=== PATIENT | male | born 1955 | race African-American/Black ===

== ENCOUNTER 2019-08-09 12:43 | Inpatient (IN) | payer MEDICARE, BC ==
[2019-08-09] VITALS (19 sets, daily range): BP systolic 114–141; BP diastolic 71–100
[~2019-08-09] VITALS: Ht 177.8 cm; Wt 113.4 kg
--- NOTE | 2019-08-09 08:00 | NUR ---
NURSE NOTES: Received admission orders from Dr. Estevez. Informed about the high ammonia level and unable to verify home medications at this time. Discontinue all home medications at this time until medications are verified with Legal guardian, No labs, No IVF, No procedures at this time, DVT prophylaxis SCDs after venous duplex scan, tylenol 650mg Q 4hrs PRN for mild pain/temperature above 100.5, 1:1 sit[address] only under Dr. Estevez (for further orders consult Dr. Piedra), Full code, start with pureed diet until ST evaluation. Will carry out the order as given and continue to monitor the patient. Addendum: 08/09/19 at 2225 by Rigoberto Dennison RN wrong time. 1999 pm. will rewrite the nursing noted.
--- NOTE | 2019-08-09 13:00 | NUR ---
ED Nurse Note: Patient walked in accompanied by legal guardian c/o bilateral leg edema x 2 weeks. VSS, on RA noted with episodes of confusion. Placed on bed and gown; hooked to tractor crane engineer.
[2019-08-09] MEDS ORDERED: LORazepam Inj 2mg/ml 1ml IV ONE ×2 (13:30→15:00)
--- NOTE | 2019-08-09 13:33 | Emergency Room Report ---
History of Present Illness General Chief Complaint: Edema Source: Patient, Friend Present Illness HPI Patient is a 63-year-old male presents after increased confusion. Gradual onset of symptoms. He was also noted to have bilateral lower extremity swelling. Denies prior medical history. History is markedly limited by patient 's poor cooperation. He denies drinking alcohol. Reports having no prior medical history.He had previously been on benzodiazepines but had recently discontinued that Allergies: Coded Allergies: No Known Allergies (Unverified , 08/09/19) Patient History Past Medical History: see triage record Reviewed Nursing Documentation: PMH: Agreed; PSxH: Agreed Nursing Documentation-PMH Hx Cardiac Problems: No - high cholesterol Hx Diabetes: Yes History Of Psychiatric Problem: Yes - Dementia Review of Systems All Other Systems: negative except mentioned in HPI Physical Exam Vital Signs Date Time Temp Pulse Resp B/P (MAP) Pulse Ox O2 Delivery O2 Flow Rate FiO2 08/09/19 12:58 98.1 56 18 131/71 (91) 98 Room Air Sp02 EP Interpretation: reviewed, normal General Appearance: normal inspection, alert, Chronically Ill Head: atraumatic ENT: normal ENT inspection, hearing grossly normal, normal voice Neck: normal inspection, full range of motion, supple, no bony tend Respiratory: normal inspection, lungs clear, normal breath sounds, no respiratory distress, no retraction, no wheezing Cardiovascular #1: regular rate, rhythm, no edema Gastrointestinal: normal inspection, normal bowel sounds, non tender, soft, no guarding, no hernia Genitourinary: no CVA tenderness Musculoskeletal: normal inspection, back normal, normal range of motion Neurologic: alert, motor strength/tone normal, house mover supervisor III-XII nml as tested, responsive Psychiatric: mood/affect normal Medical Decision Making Restraint Attestation I, Rashid Zuniga MD, have personally evaluated this patient. Laboratory tests have been reviewed and addressed accordingly. The patient is deemed to present a danger to themselves and/or others. This is based on the exam, history ( provided by patient, EMS/[facility] and/or family) and observed or reported behavior. Attempts for non-invasive measures have been considered and/or attempted, however, have been futile. It is in the best interest of the nursing staff, the patient, and others involved in this patient's care that behavioral restraints be applied. Patient evaluation reveals the following: Markedly agitated patient who was threatening staff. Diagnostic Impression: Primary Impression: Encephalopathy ER Course Patient presented for increased confusion and lower extremity swelling. Differential diagnosis include was not limited to uremia, hepatic encephalopathy , alcohol intoxication, benzodiazepine withdrawal among others. Because of complexity of patient's case laboratory tests and imaging studies were ordered.Patient's laboratory testing was unremarkable. CT the head read by radiology showed no evidence of acute intracranial hemorrhage or acute CVA. Patient was given medications due to agitation after threatening staff patient was placed in restraints. Dr. Kushal May was contacted for inpatient management Labs Test 08/09/19 13:55 White Blood Count 8.1 K/UL (4.8-10.8) Red Blood Count 5.16 M/UL (4.70-6.10) Hemoglobin 13.8 G/DL (14.2-18.0) Hematocrit 42.9 % (42.0-52.0) Mean Corpuscular Volume 83 FL (80-99) Mean Corpuscular Hemoglobin 26.8 PG (27.0-31.0) Mean Corpuscular Hemoglobin Concent 32.2 G/DL (32.0-36.0) Red Cell Distribution Width 12.8 % (11.6-14.8) Platelet Count 213 K/UL (150-450) Mean Platelet Volume 8.2 FL (6.5-10.1) Neutrophils (%) (Auto) 63.0 % (45.0-75.0) Lymphocytes (%) (Auto) 26.4 % (20.0-45.0) Monocytes (%) (Auto) 8.6 % (1.0-10.0) Eosinophils (%) (Auto) 1.1 % (0.0-3.0) Basophils (%) (Auto) 0.8 % (0.0-2.0) Last Vital Signs Date Time Temp Pulse Resp B/P (MAP) Pulse Ox O2 Delivery O2 Flow Rate FiO2 08/09/19 12:58 98.1 56 18 131/71 (91) 98 Room Air Status: improved Disposition: ADMITTED INPATIENT Condition: Stable Rashid Zuniga MD Aug 09, 2019 13:33
--- NOTE | 2019-08-09 14:14 | NUR ---
ED Nurse Note: Called CT.
[2019-08-09 14:31] LABS: BASOPHILS % (AUTO) 0.8 % (0.0-2.0); EOSINOPHILS % (AUTO) 1.1 % (0.0-3.0); HEMATOCRIT 42.9 % (42.0-52.0); HEMOGLOBIN 13.8 G/DL (14.2-18.0); LYMPHOCYTES % (AUTO) 26.4 % (20.0-45.0); MEAN CORPUSCULAR VOLUME 83 FL (80-99); MONOCYTES % (AUTO) 8.6 % (1.0-10.0); PLATELET COUNT 213 K/UL (150-450); RED BLOOD COUNT 5.16 M/UL (4.70-6.10); RED CELL DISTRIBUTION WIDTH 12.8 % (11.6-14.8); WHITE BLOOD COUNT 8.1 K/UL (4.8-10.8)
[2019-08-09 14:50] LABS: ANION GAP 9 mmol/L (5-15); BLOOD UREA NITROGEN 13 mg/dL (7-18); CALCIUM 9.4 MG/DL (8.5-10.1); CARBON DIOXIDE 27 MMOL/L (21-32); CHLORIDE 108 MMOL/L (98-107); CREATININE 1.2 MG/DL (0.55-1.30); POTASSIUM 3.8 MMOL/L (3.5-5.1); SODIUM 144 MMOL/L (136-145)
[2019-08-09 14:58] LABS: ALANINE AMINOTRANSFERASE 15 U/L (12-78); ALBUMIN 3.7 G/DL (3.4-5.0); ALBUMIN/GLOBULIN RATIO 0.8 (1.0-2.7); ALKALINE PHOSPHATASE 59 U/L (46-116); ASPARTATE AMINO TRANSFERASE 17 U/L (15-37); BILIRUBIN,TOTAL 0.7 MG/DL (0.2-1.0)
[2019-08-09] MEDS ORDERED: DiphenhydrAMINE 50mg/ml Inj IVP ONE (15:00)
[2019-08-09] MEDS ORDERED: Haloperidol 5mg/ml Inj IM ONE (15:00)
--- NOTE | 2019-08-09 15:00 | NUR ---
ED Nurse Note: Pt noted to be anxious and restrictive to care.
--- NOTE | 2019-08-09 15:15 | Diagnostic Imaging Report ---
EXAM: CT Head Without Intravenous Contrast CLINICAL HISTORY: AMS TECHNIQUE: Axial computed tomography images of the head/brain without intravenous contrast. CTDI is 60 mGy and DLP is 1274.1 mGy-cm. One or more of the following dose reduction techniques were used: automated exposure control, adjustment of the mA and/or kV according to patient size, use of iterative reconstruction technique. COMPARISON: None FINDINGS: Brain: No acute infarct or hemorrhage identified. No extra-axial fluid collection. No mass effect or midline shift. Ventricles and sulci: Mild prominence of the ventricles and sulci is likely secondary to cerebral volume loss. Bones: Normal. No bony lesion or fracture. Subcutaneous tissues: Normal. Sinuses: Normal. No air-fluid levels or mucosal thickening. Mastoid air cells: Normal. Orbits: Grossly unremarkable. Other: Atherosclerotic calcifications in the intracranial vasculature. Cerumen in the external auditory canals. IMPRESSION: No acute intracranial abnormality.
--- NOTE | 2019-08-09 18:04 | NUR ---
NURSE NOTES: Received telephone report from BRIGIDO Brown in the ER. Awaiting patient's arrival.
--- NOTE | 2019-08-09 18:50 | NUR ---
Note perico in ED - 08/09/19 at 1943 by BC TRANSFER TO FLOOR: Patient transferred to 4E as ordered, per Inderjit. Report given to [place] FOFANA. Belongings and medications given to receiving nurse. Family and or S/O informed of transfer.
--- NOTE | 2019-08-09 18:50 | NUR ---
TRANSFER TO FLOOR: Patient transferred to 4E as ordered, per Dr Estevez . Report given to [place] FOFANA. Belongings and medications given to receiving nurse. Family and or S/O informed of transfer.
--- NOTE | 2019-08-09 19:13 | NUR ---
NURSE NOTES: Patient arrived to the unit.
--- NOTE | 2019-08-09 19:20 | NUR ---
HAND-OFF: Report given to BRIGIDO Franklin.
--- NOTE | 2019-08-09 19:20 | NUR ---
NURSE NOTES: Received report from BRIGIDO Zimmerman. Patient confused, combative, and unable to reorientate. Breathing unlabored on room air without distress. No s/s of pain noted at this time. Belonging confirmed with transferring nurse. IV access on left forearm noted, wrapped in kerlix. Bed placed at the lowest with alarm, brake, and siderails up for safety. Attempted to orientate to the unit. Call light placed within reach. Room located close to nursing station. Will continue to monitor and provide care as ordered.
--- NOTE | 2019-08-09 19:26 | NUR ---
NURSE NOTES: Placed bilateral soft wrist restraint and reached Dr. Estevez for admission orders due to patient being confused, high risk for fall, and attempted to remove medical devices. Pulses present on bilateral wrists, skin intact, and warm to touch. Will continue to monitor.
--- NOTE | 2019-08-09 20:00 | NUR ---
NURSE NOTES: Received admission orders from Dr. Estevez. Informed about the high ammonia level and unable to verify home medications at this time. Discontinue all home medications at this time until medications are verified with Legal guardian, No labs, No IVF, No procedures at this time, DVT prophylaxis SCDs after venous duplex scan, tylenol 650mg Q 4hrs PRN for mild pain/temperature above 100.5, 1:1 sitter only under Dr. Estevez (for further orders consult Dr. Piedra), Full code, start with pureed diet until ST evaluation. Will carry out the order as given and continue to monitor the patient.
--- NOTE | 2019-08-09 20:11 | NUR ---
NURSE NOTES: Reached Dr. Piedra. Informed about patient's confusion, combativeness, removing medical devices, and high risk for fall. Received an order to place patient on soft bilateral wrist restraints for patient safety, Remeron 15mg PO QHS, Seroquel 25 mg PO QID, raise the HOB above 30 degrees. Will carry out the order as given and continue to monitor the patient.
[2019-08-10] VITALS: BP 122/73
[2019-08-10 04:00] VITALS: BP 156/89
--- NOTE | 2019-08-10 04:00 | NUR ---
NURSE NOTES: Patient uncooperative and combative towards care. Provided incontinence care with assist of three staff. Will continue to monitor.
--- NOTE | 2019-08-10 07:10 | NUR ---
nurse notes received patient in bed, confused no sign of distress, on bilateral wrist restraint on , HL patent, on fall precaution maintained, both side rails up for safety, call light w/n reach jil saba
--- NOTE | 2019-08-10 07:15 | NUR ---
HAND-OFF: Report given to BRIGIDO Rivera. Plan of care endorsed.
--- NOTE | 2019-08-10 07:30 | NUR ---
NURSE NOTES: Patient uncooperative and combative towards care. Provided incontinence care with assist of three staff. Will continue to monitor. Addendum: 08/10/19 at 0900 by PEDRO GILLESPIE RN RN wrong notes
[2019-08-10 08:00] VITALS: BP 138/75
[2019-08-10] MEDS ORDERED: ARICEPT23 MG ORAL (10:29)
[2019-08-10] MEDS ORDERED: LIPITOR80 MG ORAL (10:31)
[2019-08-10] MEDS ORDERED: LORAZEPAM0.5 GM MC (10:32)
[2019-08-10 11:56] VITALS: BP 152/79
[2019-08-10 14:01] LABS: APPEARANCE,URINE CLEAR; BILIRUBIN, URINE NEGATIVE (NEGATIVE); COLOR,URINE PALE YELLOW; GLUCOSE, URINE (UA) NEGATIVE (NEGATIVE); KETONES,URINE NEGATIVE (NEGATIVE); LEUKOCYTE ESTERASE ,URINE NEGATIVE (NEGATIVE); NITRITE,URINE NEGATIVE (NEGATIVE); PH,URINE 8 (4.5-8.0); PROTEIN,URINE NEGATIVE (NEGATIVE); UROBILINOGEN,URINE NORMAL MG/DL (0.0-1.0)
[2019-08-10 16:11] VITALS: BP 150/85
--- NOTE | 2019-08-10 19:05 | NUR ---
HAND-OFF: Report given to Ms. Dennison accordingly patient resting comfortably in bed, needs met and anticipated jayant ley
--- NOTE | 2019-08-10 19:15 | NUR ---
NURSE NOTES: Received report from BRIGIDO Rivera. Patient asleep. Breathing unlabored on room air without distress. No s/s of pain or discomfort noted at this time. Bed placed at the lowest with HOB elevated 30 degrees and alarm, brake, and siderails up for safety. IV noted on left forearm intact. Patient on bilateral soft wrist restraint for patient safety. Bilateral pulses present, skin intact, active range of motion achieved within the restraint, and warm to touch. Call light placed within reach. Will continue to monitor and provide care as ordered.
--- NOTE | 2019-08-10 19:15 | Consultation ---
DATE OF CONSULTATION: 08/09/2019 INFECTIOUS DISEASES CONSULTATION CONSULTING PHYSICIAN: Bert Maloney M.D. PRIMARY ATTENDING PHYSICIAN: Kushal Estevez M.D. REASON FOR CONSULT: Encephalopathy. HISTORY OF PRESENT ILLNESS: This is a 63-year-old male admitted yesterday with confusion and altered mental status. The patient currently is on restraints and is drowsy. PAST MEDICAL HISTORY: According to the ER document, high cholesterol, diabetes, and dementia. MEDICATION: Getting Remeron, Seroquel, Tylenol. Got a dose of lorazepam, diphenhydramine, and haloperidol yesterday. No history is obtainable by the patient ALLERGIES: No known drug allergies. PHYSICAL EXAMINATION: VITAL SIGNS: Temperature is 98.6, pulse 73, and blood pressure 152/79. GENERAL APPEARANCE: No acute distress. Seems to be obese. HEAD AND NECK: [place] conjunctiva. HEART: Normal rate. LUNGS: Clear. ABDOMEN: Soft and nontender. EXTREMITY: Has no edema. LABORATORY AND DIAGNOSTIC DATA: WBC 8.1, hemoglobin 13.8, hematocrit 42.9, and platelets is 213,000. Sodium 144, potassium 3.8, chloride 108, bicarbonate 27, BUN 13, creatinine 1.2, and glucose is 100. Ammonia is elevated at 41. Albumin 3.7. UA is negative. Urine toxicology was also negative. Serum alcohol was low. CT scan of the head showed no acute intracranial abnormality. IMPRESSION: The patient is encephalopathy, causes unknown. Dementia and diabetes per history. RECOMMENDATION: We will obtain chest x-ray. We will follow up without antibiotic. We will try to get more information regarding past medical history. At the end of my exam, I thank Dr. Estevez for involving me in the care of this patient. Bert Maloney M.D. DR: JANET JOB#: [id number] CC: EDI
[2019-08-10 20:00] VITALS: BP 149/93
[2019-08-11] VITALS: BP 146/93
--- NOTE | 2019-08-11 00:15 | History and Physical Report ---
DATE OF ADMISSION: 08/09/2019 HISTORY OF PRESENT ILLNESS: The patient admitted for confusion, altered mental status, encephalopathy. Has history of dementia with psych diagnosis as well. Comes in because of more confusion than baseline. CT did not show apparently any acute findings. The patient also was agitated. He is admitted for AMS, encephalopathy. Cannot get any reliable history from the patient. PAST MEDICAL HISTORY: Hyperlipidemia, dementia, anxiety. PAST SURGICAL HISTORY: Unable to obtain. ALLERGIES: Unable to obtain. MEDICATIONS: Apparently, the patient takes Lipitor and Aricept. FAMILY HISTORY: Noncontributory. SOCIAL HISTORY: Apparently has no history of smoking, alcohol, or illicit drugs. REVIEW OF SYSTEMS: Unable to obtain, very poor historian. PHYSICAL EXAMINATION: VITAL SIGNS: Temperature is 98.8, pulse 71, blood pressure 156/89. HEENT: PERRLA. NECK: Supple. No lymphadenopathy. CHEST: Clear to auscultation. CARDIOVASCULAR: Regular rate and rhythm. No murmurs or extra sounds. GASTROINTESTINAL: Soft, nontender, nondistended. No organomegaly. EXTREMITIES: No edema. Moves all four extremities. NEUROLOGIC: Does not follow neurological exam. Not oriented to name. Reflexes equal in both sides. LABORATORY DATA: WBC of 8.1, hemoglobin 13.8, platelets of 213. Sodium 144, potassium 3.8, BUN of 13, creatinine 1.2, glucose of 100. ASSESSMENT AND PLAN: Encephalopathy, altered mental status, confusion. No acute finding on the CT. The patient has psychiatric history as well. We need to find out the etiology for altered mental status, encephalopathy. I have basically consulted Dr. Bert Maloney as well as Dr. Piedra to rule out any infectious etiology as well as to manage his psychiatric behavior issues. Kushal Estevez M.D. DR: ANTWAN JOB#: [id number] CC:
[2019-08-11 04:00] VITALS: BP 147/79
--- NOTE | 2019-08-11 06:54 | NUR ---
NURSE NOTES: Patient vomited x 1 around 0540 after taking cranberry juice around 0500. Informed Dr. Estevez regarding the condition. VS reading 153/83 HR 68 O2Sat 96% RR 16. Patient currently asleep. Patient has been tolerating water, regular pureed diet, and juices without complication. Will continue to monitor the patient and wait for Dr. Estevez for any new orders follow up.
--- NOTE | 2019-08-11 07:01 | NUR ---
NURSE NOTES: Dr. Estevez ordered ST evaluation and video swallow study. Also, to notify Dr. Rowland about patient vomiting this morning. Will carry out the order as given.
--- NOTE | 2019-08-11 07:20 | NUR ---
NURSE NOTES: Handoff received from Minsu, RN. Patient received awake and confused oriented to person only. Patient is on bilateral wrist restraints. Patient has condom cath on and connected to the bed, bed in the low and locked position with call light within reach, No acute signs of distress noted. Patient has IV site left forearm clean dry and intact, will continue to monitor patient.
--- NOTE | 2019-08-11 07:39 | NUR ---
NURSE NOTES: Informed Dr. Rowland about patient vomiting this morning. Will endorse to dayshift RN to follow up.
--- NOTE | 2019-08-11 07:48 | NUR ---
HAND-OFF: Report given to BRIGIDO Rooney. Plan of care endorsed. Informed dayshift about patient vomiting in the morning. Also, informed dayshift that Dr. Estevez and Dr. Rowland was notified.
--- NOTE | 2019-08-11 08:16 | General Progress Note ---
Assessment/Plan Assessment/Plan: GI CONSULT Dictated KUB ordered Thank you Hyun Rowland MD Subjective Allergies: Coded Allergies: No Known Allergies (Unverified , 08/09/19) Objective Last 24 Hour Vital Signs Date Time Temp Pulse Resp B/P (MAP) Pulse Ox O2 Delivery O2 Flow Rate FiO2 08/11/19 04:00 98.0 61 17 147/79 (101) 96 08/11/19 00:00 98.0 74 16 146/93 (110) 96 08/10/19 21:00 Room Air 08/10/19 20:00 98.0 91 20 149/93 (111) 95 08/10/19 16:11 98.1 68 18 150/85 (106) 95 08/10/19 11:56 98.6 73 18 152/79 (103) 97 08/10/19 09:28 Room Air Intake and Output 08/10/19 08/11/19 19:00 07:00 Intake Total 1000 ml 1000 ml Output Total 1200 ml 1100 ml Balance -200 ml -100 ml Intake Oral 1000 ml 1000 ml Output Urine Total 1200 ml 1100 ml # Voids 1 Laboratory Tests 08/10/19 13:50: Urine Color Pale yellow, Urine Appearance Clear, Urine pH 8, Urine Specific [place] 1.005, Urine Protein Negative, Urine Glucose (UA) Negative, Urine Ketones Negative, Urine Blood Negative, Urine Nitrite Negative, Urine Bilirubin Negative, Urine Urobilinogen Normal, Urine Leukocyte Esterase Negative, Urine RBC 0, Urine WBC 0, Urine Squamous Epithelial Cells Occasional, Urine Bacteria Occasional, Urine Opiates Screen Negative, Urine Barbiturates Screen Negative, Phencyclidine (PCP) Screen Negative, Urine Amphetamines Screen Negative, Urine Benzodiazepines Screen Negative, Urine Cocaine Screen Negative, Urine Marijuana (THC) Screen Negative Height (Feet): 5 Height (Inches): 10.00 Weight (Pounds): 250 Radha Rowland MD Aug 11, 2019 08:16
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
--- NOTE | 2019-08-11 08:25 | NUR ---
NURSE NOTES: Patient also refused assessment shouting at me to "get that thing away from me, don't touch me with that thing" as I attempted to auscultate his lungs and listen to his heart. assessment could not continue. Patient became angry and threatening.
[2019-08-11] MEDS: Pantoprazole Inj IVP SCH (09:00)
[2019-08-11] MEDS ORDERED: Potassium Chloride 10 MEQ in D5 1/2NS 1,000 ML IV SCH (09:00)
[2019-08-11] MEDS: D5 1/2NS w/KCL 10meq 1,000 ML IV SCH ×3 (09:00→19:49)
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
[2019-08-11] MEDS ORDERED: Haloperidol 5mg/ml Inj IM SCH (09:45)
[2019-08-11] MEDS ORDERED: DiphenhydrAMINE 50mg/ml Inj IM SCH (09:45)
[2019-08-11] MEDS ORDERED: LORazepam Inj 2mg/ml 1ml IM SCH (09:45)
--- NOTE | 2019-08-11 09:54 | NUR ---
NURSING EXTENSION AGENT NOTE: Dr. Estevez communicated to me that Dr. Piedra will be handling patient issue and ordered a sitter at bedside. Charge Nurse Iris and Primary Nurse Toribio Ramsey aware . Patient remains disoriented and unable to follow instructions
[2019-08-11 12:00] VITALS: BP 148/87
--- NOTE | 2019-08-11 12:09 | NUR ---
RADIOLOGY DEPT. PT REFUSES BOTH EXAMS AT THIS TIME. NURSE OF PATIENT NOTIFIED BY AGA
--- NOTE | 2019-08-11 12:41 | Diagnostic Imaging Report ---
Indication:Leg pain and swelling Technique: Grayscale and duplex Doppler imaging of the veins in both lower extremities performed in real time utilizing compression and augmentation. Comparison: None Findings: Duplex Doppler interrogation of the veins in both lower extremity is performed from the common femoral vein to the popliteal vein. Normal venous compressibility demonstrated throughout. No thrombus identified. Waveform analysis shows good respiratory phasicity and augmentation. IMPRESSION: No evidence of deep venous thrombosis involving the lower extremities. Note: Evaluation of the left calf was not performed as the patient was restless and could not continue.
--- NOTE | 2019-08-11 13:01 | Infectious Diseases Prog Note ---
Assessment/Plan Assessment/Plan IMPRESSION: Encephalopathy, causes unknown. Dementia and diabetes diet controlled Left leg edema RECOMMENDATION: We will obtain chest x-ray. We will follow up without antibiotic. Case was D/W patient guardian Subjective ROS Limited/Unobtainable: Yes Constitutional: Denies: fever Allergies: Coded Allergies: No Known Allergies (Unverified , 08/09/19) Objective Vital Signs Last 24 Hour Vital Signs Date Time Temp Pulse Resp B/P (MAP) Pulse Ox O2 Delivery O2 Flow Rate FiO2 08/11/19 12:00 99.4 101 22 148/87 (107) 96 08/11/19 08:27 Room Air 08/11/19 04:00 98.0 61 17 147/79 (101) 96 08/11/19 00:00 98.0 74 16 146/93 (110) 96 08/10/19 21:00 Room Air 08/10/19 20:00 98.0 91 20 149/93 (111) 95 08/10/19 16:11 98.1 68 18 150/85 (106) 95 Height (Feet): 5 Height (Inches): 10.00 Weight (Pounds): 250 General Appearance: no acute distress HEENT: mucous membranes moist Respiratory/Chest: lungs clear Cardiovascular: normal rate Abdomen: soft, non tender Extremities: no edema Neurologic/Psychiatric: other - sleeping Laboratory Tests Test 08/10/19 13:50 Urine Color Pale yellow Urine Appearance Clear Urine pH 8 (4.5-8.0) Urine Specific [place] 1.005 (1.005-1.035) Urine Protein Negative (NEGATIVE) Urine Glucose (UA) Negative (NEGATIVE) Urine Ketones Negative (NEGATIVE) Urine Blood Negative (NEGATIVE) Urine Nitrite Negative (NEGATIVE) Urine Bilirubin Negative (NEGATIVE) Urine Urobilinogen Normal MG/DL (0.0-1.0) Urine Leukocyte Esterase Negative (NEGATIVE) Urine RBC 0 /HPF (0 - 0) Urine WBC 0 /HPF (0 - 0) Urine Squamous Epithelial Cells Occasional /LPF Urine Bacteria Occasional /HPF (NONE) Urine Opiates Screen Negative (NEGATIVE) Urine Barbiturates Screen Negative (NEGATIVE) Phencyclidine (PCP) Screen Negative (NEGATIVE) Urine Amphetamines Screen Negative (NEGATIVE) Urine Benzodiazepines Screen Negative (NEGATIVE) Urine Cocaine Screen Negative (NEGATIVE) Urine Marijuana (THC) Screen Negative (NEGATIVE) Current Medications Medications (Trade) Dose Ordered Sig/Kobe Route PRN Reason Start Time Stop Time Status Last Admin Dose Admin Acetaminophen (Tylenol) 650 mg Q4H PRN ORAL Mild Pain/Temp > 100.5 08/09/19 20:15 09/08/19 20:14 Dextrose/ Electrolytes 1,000 ml @ 100 mls/hr Q10H IV 08/11/19 09:00 09/10/19 08:59 Mirtazapine (Remeron) 15 mg BEDTIME ORAL 08/09/19 21:00 09/08/19 20:59 08/10/19 20:15 Ondansetron HCl (Zofran) 4 mg Q6H PRN IVP Nausea & Vomiting 08/11/19 08:30 09/10/19 08:29 Pantoprazole (Protonix) 40 mg DAILY IVP 08/11/19 09:00 09/10/19 08:59 Quetiapine Fumarate (SEROqueL) 25 mg QID ORAL 08/09/19 21:00 09/08/19 20:59 08/10/19 20:15 Bert Maloney MD Aug 11, 2019 13:01
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
[2019-08-11 16:00] VITALS: BP 165/96
--- NOTE | 2019-08-11 19:14 | NUR ---
HAND-OFF: Report given to BRIGIDO Franklin.
--- NOTE | 2019-08-11 19:15 | Consultation ---
DATE OF CONSULTATION: 08/11/2019 GASTROENTEROLOGY CONSULTATION CONSULTING PHYSICIAN: Radha Rowland M.D. REFERRING PHYSICIAN: Kushal Estevez M.D. CHIEF COMPLAINT: I was asked to see this patient by Dr. Kushal Estevez for evaluation of vomiting. HISTORY OF PRESENT ILLNESS: The patient is a 63-year-old man who was admitted to the hospital due to altered mental status and encephalopathy. The patient is agitated. He is restrained and he is not cooperative with the evaluation. He became combative during my examination, which made the evaluation limited. The patient is disoriented and is unable to provide much history. He basically gives tangential answers to most questions, but does not know the answers, therefore history was not felt to be of much value. The patient denies any vomiting, which just occurred about half an hour ago. I was called to see this patient this morning, the patient was given some cranberry juice and subsequently had a bout of emesis. No other findings have been reported. The patient does take Aricept for dementia. PAST MEDICAL HISTORY: History of hyperlipidemia, dementia, and anxiety. ALLERGIES: No allergies per chart records, but unobtainable directly from this patient. MEDICATIONS: See the chart list for details. FAMILY HISTORY: Unobtainable. SOCIAL HISTORY: Unobtainable. REVIEW OF SYSTEMS: Unobtainable. PHYSICAL EXAMINATION: GENERAL: Agitated, restrained, confused white man seen in his room. Examination was somewhat limited by the patient's lack of cooperation. HEENT: Normocephalic and atraumatic. Sclerae anicteric. NECK: Supple. CHEST: Clear to auscultation. CARDIOVASCULAR: Revealed regular rate. ABDOMEN: Soft and mildly distended. EXTREMITIES: Revealed no edema. LABORATORY DATA: Noted. ASSESSMENT: This patient presents with a bout of nausea and vomiting this morning of unclear etiology. The episode seems to have been improved and the patient can be followed for now. I would place him off diet for now until further assessment can be completed. The patient should be given a proton pump inhibitor and also antiemetics as needed. I will check a KUB of his abdomen to rule out any ileus obstruction. Should all this be negative, repeat feeding trials can be given slowly. The patient has minimally elevated ammonia level, but I doubt this relates to his altered mental status, which seemed to be more a psychiatric issue. RECOMMENDATIONS: 1. Keep the patient n.p.o. 2. IV fluids. 3. Proton pump inhibitor. 4. Zofran as needed. 5. Check KUB. 6. Further orders to follow. Thank you for asking me to participate in the care of this patient. Radha Rowland M.D. DR: GOPAL JOB#: [id number] CC: EDI
--- NOTE | 2019-08-11 19:20 | NUR ---
NURSE NOTES: Received a report from BRIGIDO Rooney. Patient awake and confused, agitated and anxious. Verbally and physically aggressive. Breathing unlabored on room air without distress. No s/s or complaints of pain noted at this time. On bilateral soft wrist restraint for patient safety to prevent falls and removal of medical devices.Pulses present, skin intact, and warm to touch on bilateral wrist. IV noted on left forearm intact and running IVF as ordered. Bed placed at the lowest with alarm, brake, and siderails up for safety. Call light placed within reach. Will continue to monitor and provide care as ordered.
[2019-08-11 20:00] VITALS: BP 157/90
--- NOTE | 2019-08-11 22:00 | General Progress Note ---
Assessment/Plan Problem List: (1) Encephalopathy ICD Codes: G93.40 - Encephalopathy, unspecified SNOMED: 57683250 Status: progressing Assessment/Plan: confused ams obs reviewed chart and labs encephalopathy Subjective ROS Limited/Unobtainable: Yes Allergies: Coded Allergies: No Known Allergies (Unverified , 08/09/19) Objective Last 24 Hour Vital Signs Date Time Temp Pulse Resp B/P (MAP) Pulse Ox O2 Delivery O2 Flow Rate FiO2 08/11/19 16:00 97.8 88 18 165/96 (119) 95 08/11/19 12:00 99.4 101 22 148/87 (107) 96 08/11/19 08:27 Room Air 08/11/19 04:00 98.0 61 17 147/79 (101) 96 08/11/19 00:00 98.0 74 16 146/93 (110) 96 Intake and Output 08/10/19 08/11/19 19:00 07:00 Intake Total 1000 ml 1000 ml Output Total 1200 ml 1100 ml Balance -200 ml -100 ml Intake Oral 1000 ml 1000 ml Output Urine Total 1200 ml 1100 ml # Voids 1 Height (Feet): 5 Height (Inches): 10.00 Weight (Pounds): 250 General Appearance: confused Cardiovascular: normal rate Respiratory/Chest: lungs clear Abdomen: soft Kushal Estevez MD Aug 11, 2019 22:00
[2019-08-12] VITALS: BP 143/76
--- NOTE | 2019-08-12 01:30 | Consultation ---
DATE OF CONSULTATION: 08/11/2019 CONSULTING PHYSICIAN: Mervin Piedra M.D. HISTORY OF PRESENT ILLNESS: This is a 63-year-old male with a history of dementia, anxiety, hyperlipidemia, who has been admitted to the hospital due to medical stabilization. The patient is severely agitated today and was combative. It was difficult to redirect the patient. The patient apparently living at home. The patient is unable to understand, process, or communicate rationally. PAST PSYCHIATRIC HISTORY: Significant for anxiety, dementia, psychotic disorder. PAST MEDICAL HISTORY: Hyperlipidemia. ALLERGIES: No known drug allergies. SUBSTANCE ABUSE HISTORY: No known history of illicit drug use or alcohol. MENTAL STATUS EXAMINATION: The patient is alert, confused, disoriented. Mood is agitated. Affect is flat. Thought process is disorganized. Thought content, no suicidal or homicidal ideation. Cognition is impaired. Insight and judgment is impaired. ASSESSMENT: Redford I Dementia with behavior disturbance. Redford II Deferred. Redford III . Redford IV Low. Redford V 20. PLAN: 1. We will start the patient on Seroquel. 2. Ativan as needed. 3. Provide the patient with reality orientation and supportive therapy. Mervin Piedra M.D. DR: IMANI JOB#: [id number] CC:
[2019-08-12 04:00] VITALS: BP 121/89
--- NOTE | 2019-08-12 04:00 | NUR ---
NURSE NOTES: Patient resistive to vital sign procedure. Was not able to obtain [id number] level. Will attempt later.
--- NOTE | 2019-08-12 05:13 | NUR ---
NURSE NOTES: Provided incontinence care with three staff member. New condom cath placed for prevent skin breakdown from incontinence. Patient tolerated well. Will continue to monitor.
[2019-08-12] MEDS: D5 1/2NS w/KCL 10meq 1,000 ML IV SCH ×2 (05:25→18:10)
[2019-08-12] MEDS: LORazepam Inj 2mg/ml 1ml IM PRN ×2 (06:05→12:04)
--- NOTE | 2019-08-12 07:30 | NUR ---
HAND-OFF: Report given to BRIGIDO Rooney. Plan of care endorsed.
--- NOTE | 2019-08-12 07:35 | NUR ---
NURSE NOTES: Handoff received from Minsu, RN. Patient received awake and alert but confused and rambling to himself. IV site is running prescribed fluids. No acute signs of distress noted, patient is in bilateral soft wrist restraints. Bed in the low and locked position with call light at reach on the bed. Will continue to monitor patient.
[2019-08-12 08:00] VITALS: BP 150/86
[2019-08-12] MEDS: Pantoprazole Inj IVP SCH (08:53)
--- NOTE | 2019-08-12 10:00 | NUR ---
NURSE NOTES: Patient's conservator Yaritza arrived to visit the patient.
--- NOTE | 2019-08-12 11:07 | Infectious Diseases Prog Note ---
Assessment/Plan Assessment/Plan IMPRESSION: Encephalopathy, causes unknown. Dementia and diabetes diet controlled Left leg edema RECOMMENDATION: We will follow up without antibiotic. Case was D/W patient guardian Subjective ROS Limited/Unobtainable: Yes Neurologic: Reports: confusion, other - on restraint Allergies: Coded Allergies: No Known Allergies (Unverified , 08/09/19) Objective Vital Signs Last 24 Hour Vital Signs Date Time Temp Pulse Resp B/P (MAP) Pulse Ox O2 Delivery O2 Flow Rate FiO2 08/12/19 08:58 Room Air 08/12/19 08:00 97.9 76 20 150/86 (107) 99 76 08/12/19 04:00 97.4 77 18 121/89 (100) 08/12/19 00:00 98.0 65 20 143/76 (98) 98 08/11/19 23:36 98.0 08/11/19 21:00 Room Air 08/11/19 20:00 100.5 92 18 157/90 (112) 96 08/11/19 16:00 97.8 88 18 165/96 (119) 95 08/11/19 12:00 99.4 101 22 148/87 (107) 96 Height (Feet): 5 Height (Inches): 10.00 Weight (Pounds): 250 General Appearance: no acute distress HEENT: mucous membranes moist Respiratory/Chest: lungs clear Cardiovascular: normal rate Abdomen: soft, non tender Extremities: no edema Neurologic/Psychiatric: disoriented Current Medications Medications (Trade) Dose Ordered Sig/Kobe Route PRN Reason Start Time Stop Time Status Last Admin Dose Admin Acetaminophen (Tylenol) 650 mg Q4H PRN ORAL Mild Pain/Temp > 100.5 08/09/19 20:15 09/08/19 20:14 08/11/19 21:43 Dextrose/ Electrolytes 1,000 ml @ 100 mls/hr Q10H IV 08/11/19 09:00 09/10/19 08:59 08/12/19 05:25 Lorazepam (Ativan 2mg/ml 1ml) 1 mg Q4H PRN IM For Anxiety 08/11/19 15:18 08/18/19 15:17 08/12/19 06:05 Mirtazapine (Remeron) 15 mg BEDTIME ORAL 08/09/19 21:00 09/08/19 20:59 08/11/19 20:15 Ondansetron HCl (Zofran) 4 mg Q6H PRN IVP Nausea & Vomiting 08/11/19 08:30 09/10/19 08:29 Pantoprazole (Protonix) 40 mg DAILY IVP 08/11/19 09:00 09/10/19 08:59 08/12/19 08:53 Quetiapine Fumarate (SEROqueL) 100 mg TID ORAL 08/11/19 16:00 09/10/19 15:59 08/12/19 08:52 Bert Maloney MD Aug 12, 2019 11:07
--- NOTE | 2019-08-12 13:43 | NUR ---
RADIOLOGY DEPT., CHEST AND ABDOMEN X-RAYS COMPLETED.-P.DYE
--- NOTE | 2019-08-12 14:02 | Diagnostic Imaging Report ---
Indication: Dyspnea Comparison: None A single view chest radiograph was obtained. Findings: Reticular densities are present within the lungs, nonspecific, acuity indeterminate. Aorta is mildly enlarged. Heart size is normal. Bones are unremarkable. IMPRESSION: Interstitial prominence within the lungs, nonspecific in nature
--- NOTE | 2019-08-12 14:12 | Diagnostic Imaging Report ---
Indication: Abdominal pain Comparison: None Single view of the abdomen obtained Findings: Bowel gas pattern is nonspecific. There is moderate fecal retention within the right hemicolon. No mass, ectopic calcifications, or abnormal gas collections are identified. The bones are unremarkable. Impression: No acute findings
[2019-08-12 16:00] VITALS: BP 155/106
--- NOTE | 2019-08-12 17:54 | General Progress Note ---
Assessment/Plan Status: progressing Assessment/Plan: Assessment - Delirium - resolved vomiting Recommendations - retry po diet - watch for recurrent vomiting - follow labs and exam Subjective Allergies: Coded Allergies: No Known Allergies (Unverified , 08/09/19) Subjective confused talking to himself fighting restraints Objective Last 24 Hour Vital Signs Date Time Temp Pulse Resp B/P (MAP) Pulse Ox O2 Delivery O2 Flow Rate FiO2 08/12/19 16:00 98.6 98 20 155/106 (122) 95 08/12/19 08:58 Room Air 08/12/19 08:00 97.9 76 20 150/86 (107) 99 76 08/12/19 04:00 97.4 77 18 121/89 (100) 08/12/19 00:00 98.0 65 20 143/76 (98) 98 08/11/19 23:36 98.0 08/11/19 21:00 Room Air 08/11/19 20:00 100.5 92 18 157/90 (112) 96 Intake and Output 08/11/19 08/12/19 19:00 07:00 Intake Total 240 ml Output Total 1400 ml Balance 240 ml -1400 ml Intake Oral 240 ml Output Urine Total 1400 ml # Voids 2 Height (Feet): 5 Height (Inches): 10.00 Weight (Pounds): 250 Objective Confused restrained NCAT supple CTA RR abd soft no edema Radha Rowland MD Aug 12, 2019 17:54
--- NOTE | 2019-08-12 19:38 | NUR ---
HAND-OFF: Report given to BRIGIDO Franklin.
--- NOTE | 2019-08-12 19:40 | NUR ---
NURSE NOTES: Received a report from BRIGIDO Rooney. Patient awake and confused, agitated and restless. Breathing unlabored on room air without distress. No s/s or complaints of pain noted at this time. On bilateral soft wrist restraint for patient safety to prevent falls and removal of medical devices.Pulses present, skin intact, and warm to touch on bilateral wrist. IV noted on left forearm intact and running IVF as ordered. Bed placed at the lowest with alarm, brake, and siderails up for safety. Call light placed within reach. Will continue to monitor and provide care as ordered.
[2019-08-12 20:00] VITALS: BP 159/86
--- NOTE | 2019-08-12 21:20 | NUR ---
NURSE NOTES: Provided incontinence care with additional staff member. Patient tolerated well. Will continue to monitor.
--- NOTE | 2019-08-12 21:32 | General Progress Note ---
Assessment/Plan Problem List: (1) Encephalopathy ICD Codes: G93.40 - Encephalopathy, unspecified SNOMED: 56596659 Status: progressing Assessment/Plan: confused agitated on restraints (ordered by pscy_ encephalopathy ams obs reviewed chart and labs encephalopathy Subjective ROS Limited/Unobtainable: Yes Allergies: Coded Allergies: No Known Allergies (Unverified , 08/09/19) Objective Last 24 Hour Vital Signs Date Time Temp Pulse Resp B/P (MAP) Pulse Ox O2 Delivery O2 Flow Rate FiO2 08/12/19 16:00 98.6 98 20 155/106 (122) 95 08/12/19 08:58 Room Air 08/12/19 08:00 97.9 76 20 150/86 (107) 99 76 08/12/19 04:00 97.4 77 18 121/89 (100) 08/12/19 00:00 98.0 65 20 143/76 (98) 98 08/11/19 23:36 98.0 Intake and Output 08/11/19 08/12/19 19:00 07:00 Intake Total 240 ml Output Total 1400 ml Balance 240 ml -1400 ml Intake Oral 240 ml Output Urine Total 1400 ml # Voids 2 Height (Feet): 5 Height (Inches): 10.00 Weight (Pounds): 250 Neck: supple Cardiovascular: normal rate Respiratory/Chest: lungs clear Abdomen: soft Kushal Estevez MD Aug 12, 2019 21:32
[2019-08-13 00:52] VITALS: BP 157/61
[2019-08-13] MEDS: D5 1/2NS w/KCL 10meq 1,000 ML IV SCH ×3 (01:00→22:24)
[2019-08-13 04:00] VITALS: BP 109/75
--- NOTE | 2019-08-13 07:44 | NUR ---
HAND-OFF: Report given to BRIGIDO Mata. Plan of care endorsed.
--- NOTE | 2019-08-13 07:45 | NUR ---
NURSE NOTES: received report from BRIGIDO Franklin. patient in bed. sleeping. no respiratory distress noted. no facial grimacing. soft restraint on both wrist for safety. renewed on 08/12/2019 @0926. skin intact. no open skin. IV on LFA22. Lwrist 24g intact. bed in the lowest position and locked. call light within reach. alarm on. will continue to provide plan of care.
[2019-08-13 08:00] VITALS: BP 179/103
[2019-08-13] MEDS: Pantoprazole Inj IVP SCH (09:07)
--- NOTE | 2019-08-13 09:12 | NUR ---
NURSE NOTES: patient refused to take seroquel PO. explained risks and benefits. patient is aggressive and combative. verbally cursed nurse. will continue to monitor patient condition and behavior.
[2019-08-13] MEDS: LORazepam Inj 2mg/ml 1ml IM PRN (11:02)
--- NOTE | 2019-08-13 11:06 | NUR ---
NURSE NOTES: patient agitated and restless. patient was trying to get out of bed and pulling out IV tubing. nurses approached calm manner and explained that patient needs stay bed for safety and needs IV hydration. patient was aggressive. cursed nursing staff. administered atvian 1mg IM PRN on left deltoid as ordered. will continue to monitor effectiveness of medication and behavior.
--- NOTE | 2019-08-13 11:15 | Infectious Diseases Prog Note ---
Assessment/Plan Assessment/Plan IMPRESSION: Encephalopathy, causes unknown. Dementia and diabetes diet controlled Left leg edema RECOMMENDATION: We will follow up without antibiotic. Subjective ROS Limited/Unobtainable: Yes Neurologic: Reports: confusion, other - on restraint Allergies: Coded Allergies: No Known Allergies (Unverified , 08/09/19) Objective Vital Signs Last 24 Hour Vital Signs Date Time Temp Pulse Resp B/P (MAP) Pulse Ox O2 Delivery O2 Flow Rate FiO2 08/13/19 09:00 Room Air 08/13/19 08:00 97.4 76 20 179/103 (128) 95 08/13/19 04:00 97.7 64 18 109/75 (86) 100 08/13/19 00:52 97.7 86 20 157/61 (93) 94 08/12/19 21:00 Room Air 08/12/19 20:00 99.3 90 20 159/86 (110) 99 08/12/19 16:00 98.6 98 20 155/106 (122) 95 Height (Feet): 5 Height (Inches): 10.00 Weight (Pounds): 249 General Appearance: no acute distress HEENT: mucous membranes moist Respiratory/Chest: lungs clear Cardiovascular: normal rate Abdomen: soft, non tender Extremities: no edema Neurologic/Psychiatric: alert, responsive, disoriented Current Medications Medications (Trade) Dose Ordered Sig/Kobe Route PRN Reason Start Time Stop Time Status Last Admin Dose Admin Acetaminophen (Tylenol) 650 mg Q4H PRN ORAL Mild Pain/Temp > 100.5 08/09/19 20:15 09/08/19 20:14 08/11/19 21:43 Dextrose/ Electrolytes 1,000 ml @ 100 mls/hr Q10H IV 08/11/19 09:00 09/10/19 08:59 08/13/19 06:00 Lorazepam (Ativan 2mg/ml 1ml) 1 mg Q4H PRN IM For Anxiety 08/11/19 15:18 08/18/19 15:17 08/13/19 11:02 Mirtazapine (Remeron) 15 mg BEDTIME ORAL 08/09/19 21:00 09/08/19 20:59 08/12/19 21:01 Ondansetron HCl (Zofran) 4 mg Q6H PRN IVP Nausea & Vomiting 08/11/19 08:30 09/10/19 08:29 Pantoprazole (Protonix) 40 mg DAILY IVP 08/11/19 09:00 09/10/19 08:59 08/13/19 09:07 Quetiapine Fumarate (SEROqueL) 100 mg TID ORAL 08/11/19 16:00 09/10/19 15:59 08/12/19 18:05 Bert Maloney MD Aug 13, 2019 11:15
[2019-08-13] MEDS: Valproic Acid 250mg/5ml Liquid NG SCH ×2 (11:45→22:24)
[2019-08-13 12:00] VITALS: BP 158/86
[2019-08-13] MEDS: LORazepam 1mg tab ORAL SCH ×2 (13:00→18:00)
--- NOTE | 2019-08-13 15:18 | NUR ---
CASE MANAGEMENT:INITIAL REVIEW 08/10/2019 63 YR OLD MALE FROM HOME CC;EDEMA SI;ENCEPHALOPATHY 98.1 56 18 131/71 98% ON RA CL [address] - Brain: No acute infarct or hemorrhage identified. No extra-axial fluid collection. No mass effect or midline shift. IS;RISPERIDONE PO X1 ATIVAN IV X2 HALDOL IM X1 BENADRYL IV X1 ADMITTED TO MED SURG MED SURG STATUS DCP;FROM HOME CASE MANAGEMENT:REVIEW 08/13/2019 SI;ENCEPHALOPATHY 98.4 53 20 179/103 94% ON RA IS;IVF D5 @ 100 ML/HR ATIVAN IM Q4 HRS PRN DEPAKENE PO TID SEROQUEL PO TID MED SURG STATUS DCP;FROM HOME
[2019-08-13 16:00] VITALS: BP 153/83
--- NOTE | 2019-08-13 19:42 | NUR ---
HAND-OFF: Report given to BRIGIDO Alicea.
[2019-08-13 20:00] VITALS: BP 142/95
--- NOTE | 2019-08-13 20:16 | NUR ---
NURSE NOTES: Pt is in bed, awake and verbal. Pt is confused. No acute distress noted. Vitas stable. Room Air. HOB elevated. Bilat soft wrist restraints in place for safety; restraint sites are asymptomatic. Pt allowed to have ROM exercises, offered food and hydration. Condom cath draining yellow urine. Fall precaution in place, bed alarm on. Bed locked low in position,side rails up and call light within reach. Pt will be monitored.
--- NOTE | 2019-08-13 20:33 | General Progress Note ---
Assessment/Plan Status: progressing Assessment/Plan: Assessment - Delirium - resolved vomiting Recommendations - advance po diet - watch for recurrent vomiting - follow labs and exam Subjective Allergies: Coded Allergies: No Known Allergies (Unverified , 08/09/19) Subjective confused talking to himself fighting restraints Objective Last 24 Hour Vital Signs Date Time Temp Pulse Resp B/P (MAP) Pulse Ox O2 Delivery O2 Flow Rate FiO2 08/13/19 20:00 98.6 101 20 142/95 (111) 97 08/13/19 16:00 98.0 84 20 153/83 (106) 97 08/13/19 12:00 98.4 80 20 158/86 (110) 95 08/13/19 09:00 Room Air 08/13/19 08:00 97.4 76 20 179/103 (128) 95 08/13/19 04:00 97.7 64 18 109/75 (86) 100 08/13/19 00:52 97.7 86 20 157/61 (93) 94 08/12/19 21:00 Room Air Intake and Output 08/12/19 08/13/19 19:00 07:00 Intake Total 900 ml Output Total 400 ml 100 ml Balance -400 ml 800 ml IV Total 900 ml Output Urine Total 400 ml 100 ml # Voids 2 Height (Feet): 5 Height (Inches): 10.00 Weight (Pounds): 249 Objective Confused restrained NCAT supple CTA RR abd soft no edema Radha Rowland MD Aug 13, 2019 20:33
--- NOTE | 2019-08-13 20:44 | General Progress Note ---
Assessment/Plan Problem List: (1) Encephalopathy ICD Codes: G93.40 - Encephalopathy, unspecified SNOMED: 77537000 Status: progressing Assessment/Plan: needs snf r/o uti spoke w dr worley re agitation encephalopathy ams obs reviewed chart and labs encephalopathy Subjective ROS Limited/Unobtainable: Yes Allergies: Coded Allergies: No Known Allergies (Unverified , 08/09/19) Objective Last 24 Hour Vital Signs Date Time Temp Pulse Resp B/P (MAP) Pulse Ox O2 Delivery O2 Flow Rate FiO2 08/13/19 20:00 98.6 101 20 142/95 (111) 97 08/13/19 16:00 98.0 84 20 153/83 (106) 97 08/13/19 12:00 98.4 80 20 158/86 (110) 95 08/13/19 09:00 Room Air 08/13/19 08:00 97.4 76 20 179/103 (128) 95 08/13/19 04:00 97.7 64 18 109/75 (86) 100 08/13/19 00:52 97.7 86 20 157/61 (93) 94 08/12/19 21:00 Room Air Intake and Output 08/12/19 08/13/19 19:00 07:00 Intake Total 900 ml Output Total 400 ml 100 ml Balance -400 ml 800 ml IV Total 900 ml Output Urine Total 400 ml 100 ml # Voids 2 Height (Feet): 5 Height (Inches): 10.00 Weight (Pounds): 249 Cardiovascular: normal rate Respiratory/Chest: lungs clear Abdomen: soft Kushal Estevez MD Aug 13, 2019 20:44
--- NOTE | 2019-08-13 21:04 | NUR ---
NURSE NOTES: [facility]. Vitas stable O2 sat at 97% on 2L n/c. Pt is awake, alert and verbal. Discharge packet and instructions forwarded to the facility. Report was given to BRIGIDO Sutton over at the facility by previous shift nurse BRIGIDO Rodriguez. Daughter Aliza present during discharge. Pt and daughter verified belongings and all belongings sent with patient. IV cath and ID band removed. Addendum: 08/13/19 at 2132 by JANNETTE TINAJERO RN RN Disregard above note; wrong patient.
--- NOTE | 2019-08-13 23:13 | Psych Consult Progress Note ---
Psychiatry Progress Note Psychiatry Progress Note Subjective alert, confused, disoriented. Mood is agitated. Affect is flat. Thought process is disorganized. Thought content, no suicidal or homicidal ideation. Cognition is impaired. Insight and judgment is impaired. Medications Current Medications Medications (Trade) Dose Ordered Sig/Kobe Route PRN Reason Start Time Stop Time Status Last Admin Dose Admin Acetaminophen (Tylenol) 650 mg Q4H PRN ORAL Mild Pain/Temp > 100.5 08/09/19 20:15 09/08/19 20:14 08/11/19 21:43 Dextrose/ Electrolytes 1,000 ml @ 100 mls/hr Q10H IV 08/11/19 09:00 09/10/19 08:59 08/13/19 22:24 Lorazepam (Ativan 2mg/ml 1ml) 1 mg Q4H PRN IM For Anxiety 08/11/19 15:18 08/18/19 15:17 08/13/19 11:02 Lorazepam (Ativan) 1 mg THREE TIMES A DAY ORAL 08/13/19 13:00 08/20/19 12:59 08/13/19 18:00 Ondansetron HCl (Zofran) 4 mg Q6H PRN IVP Nausea & Vomiting 08/11/19 08:30 09/10/19 08:29 Pantoprazole (Protonix) 40 mg DAILY IVP 08/11/19 09:00 09/10/19 08:59 08/13/19 09:07 Quetiapine Fumarate (SEROqueL) 100 mg TID ORAL 08/11/19 16:00 09/10/19 15:59 08/13/19 18:00 Valproic Acid (Depakene) 750 mg EVERY 12 HOURS NG 08/13/19 11:45 09/12/19 11:44 08/13/19 22:24 Neurological/Psychiatric: Reports: anxiety, depressed, emotional problems Allergies: Coded Allergies: No Known Allergies (Unverified , 08/09/19) Objective Data Height (Feet): 5 Height (Inches): 10.00 Weight (Pounds): 249 Appearance: disheveled Behavior Mannerisms: poor eye contact Mental Status Exam - Mood: irritable, anxious, agitated Mental Status Exam - Thought P: illogical, tangential Perceptual Disturbances: hallucinations Mental Status Exam - Suicidal: not present Assessment/Plan Status: progressing Assessment/Plan: ASSESSMENT: Willernie I Dementia with behavior disturbance. Willernie II Deferred. Willernie III ams Willernie IV Low. Willernie V 20. PLAN: 1. We will start the patient on Seroquel. 2. Ativan as needed. 3. Provide the patient with reality orientation and supportive therapy. 4. Mervin Gracia MD Aug 13, 2019 23:13
[2019-08-14] VITALS: BP 156/96
--- NOTE | 2019-08-14 03:55 | NUR ---
NURSE NOTES: Pt is in bed, asleep. No acute distress noted. Pt wakes up time to time and attempts to get out of bed. Bilat soft wrist restraints in place. Pt repositioned and cleaned. Vitas stable.
[2019-08-14 04:00] VITALS: BP 135/82
[2019-08-14] MEDS: D5 1/2NS w/KCL 10meq 1,000 ML IV SCH (05:55)
[2019-08-14] MEDS: LORazepam Inj 2mg/ml 1ml IM PRN ×2 (06:28→14:31)
--- NOTE | 2019-08-14 07:20 | NUR ---
HAND-OFF: Report given to Esperanza Mckeon RN.Endorsed to incoming nurse that pt is high fall risk.
--- NOTE | 2019-08-14 07:57 | NUR ---
NURSE NOTES: received report from BRIGIDO Alicea. patient in bed. alert. confused. self talking. no respiratory distress noted. no facial grimacing noted. IV on Lwrist 24 running D51/2NS 10meq@75/hr. condom cath draining. yellow. no sediment noted. soft restraints on both wrists for safety. skin intact. no open skin noted. patient is high risk of fall. yellow socks on. bed in the lowest position and locked. call light within reach. room close from nursing station. alarm on. will continue to provide plan of care.
[2019-08-14 08:00] VITALS: BP 147/93
[2019-08-14] MEDS: Valproic Acid 250mg/5ml Liquid NG SCH (09:17)
[2019-08-14] MEDS: LORazepam 1mg tab ORAL SCH ×2 (09:17→12:44)
[2019-08-14] MEDS: Pantoprazole Inj IVP SCH (09:17)
[2019-08-14 12:00] VITALS: BP 165/81
--- NOTE | 2019-08-14 13:10 | NUR ---
CASE MANAGEMENT:DISCHARGE PLANNING PATIENT DISCHARGE WITH REFERRAL TO [facility] P: [phone] F: [phone] CALL BACK RECEIVED FROM ANTHONY PATTERSON, [employer] WORK[employer] PATIENT ACCEPTED TO [facility] 3-B SKILLED AMBULACE TRANSPORTATION SCHEDULED WITH [facility] @ EXT [id number] WITH AN ETA @ 1430 PM
--- NOTE | 2019-08-14 13:21 | Infectious Diseases Prog Note ---
Assessment/Plan Assessment/Plan IMPRESSION: Encephalopathy, causes unknown. Dementia and diabetes diet controlled Left leg edema RECOMMENDATION: We will follow up without antibiotic. Subjective ROS Limited/Unobtainable: Yes Constitutional: Denies: fever Neurologic: Reports: confusion, other - on restraint Allergies: Coded Allergies: No Known Allergies (Unverified , 08/09/19) Objective Vital Signs Last 24 Hour Vital Signs Date Time Temp Pulse Resp B/P (MAP) Pulse Ox O2 Delivery O2 Flow Rate FiO2 08/14/19 12:00 97.8 87 18 165/81 (109) 95 08/14/19 09:00 Room Air 08/14/19 08:00 97.9 82 19 147/93 (111) 100 08/14/19 04:00 97.5 71 20 135/82 (99) 98 08/14/19 00:00 98.0 90 20 156/96 (116) 96 08/13/19 21:00 Room Air 08/13/19 20:00 98.6 101 20 142/95 (111) 97 08/13/19 16:00 98.0 84 20 153/83 (106) 97 Height (Feet): 5 Height (Inches): 10.00 Weight (Pounds): 249 General Appearance: no acute distress HEENT: mucous membranes moist Respiratory/Chest: lungs clear Cardiovascular: normal rate Abdomen: soft, non tender Extremities: no edema Neurologic/Psychiatric: disoriented Current Medications Medications (Trade) Dose Ordered Sig/Kobe Route PRN Reason Start Time Stop Time Status Last Admin Dose Admin Acetaminophen (Tylenol) 650 mg Q4H PRN ORAL Mild Pain/Temp > 100.5 08/09/19 20:15 09/08/19 20:14 08/11/19 21:43 Dextrose/ Electrolytes 1,000 ml @ 100 mls/hr Q10H IV 08/11/19 09:00 09/10/19 08:59 08/14/19 05:55 Lorazepam (Ativan 2mg/ml 1ml) 1 mg Q4H PRN IM For Anxiety 08/11/19 15:18 08/18/19 15:17 08/14/19 06:28 Lorazepam (Ativan) 1 mg THREE TIMES A DAY ORAL 08/13/19 13:00 08/20/19 12:59 08/14/19 12:44 Ondansetron HCl (Zofran) 4 mg Q6H PRN IVP Nausea & Vomiting 08/11/19 08:30 09/10/19 08:29 Pantoprazole (Protonix) 40 mg DAILY IVP 08/11/19 09:00 09/10/19 08:59 08/14/19 09:17 Quetiapine Fumarate (SEROqueL) 100 mg TID ORAL 08/11/19 16:00 09/10/19 15:59 08/14/19 12:43 Valproic Acid (Depakene) 750 mg EVERY 12 HOURS NG 08/13/19 11:45 09/12/19 11:44 08/14/19 09:17 Bert Maloney MD Aug 14, 2019 13:20
--- NOTE | 2019-08-14 14:03 | NUR ---
NURSE NOTES: given report to [facility]. spoke to Anastasia,Nurse files supervisor. [phone]
--- NOTE | 2019-08-14 14:33 | NUR ---
NURSE NOTES: patient is agitated and restlessness during care. aggressive and trying to get out of bed. discontinued restraints by MD. RN administered Ativan 1mg IM PRN for agitation. will continue to monitor effectiveness of mediation and patient's behavior.
--- NOTE | 2019-08-14 15:24 | NUR ---
NURSE NOTES: patient discharged to [facility] via ambulance [facility] with fair condition. alert. disoriented. confused. no respiratory distress noted. no pain at this time. removed IV and ID band upon discharge. skin intact. provided dc packet to ambulance personnel.
--- NOTE | 2019-08-14 16:30 | Progress Note ---
DATE: 08/14/2019 SUBJECTIVE: The patient is doing well. No behavior issues noted. Calm and cooperative. The patient is less agitated, more manageable. Off restraints. MENTAL STATUS EXAMINATION: The patient is confused, disoriented. Mood is neutral to anxious. Affect is flat. Thought process is disorganized. Thought content, no suicidal or homicidal ideation. Cognition is impaired. Insight and judgment impaired. ASSESSMENT: The patient is more stable and less agitated. Dementia with behavior disturbance. PLAN: 1. The patient is medically cleared. He is benefitting from psychiatric hospitalization. 2. He could be discharged to [facility] if manageable. Mervin Piedra M.D. DR: RUSTY JOB#: [id number] CC:
--- NOTE | 2019-08-16 20:35 | Discharge Summary ---
Discharge Summary Discharge Summary _ DATE OF ADMISSION: 08/09/2019 DATE OF DISCHARGE: 08/14/2019 DISCHARGED BY: Dr. Estevez REASON FOR ADMISSION: 63 years old male with past medical history of diabetes mellitus, dementia, high cholesterol, presented to emergency room for evaluation due to increased confusion. Patient reported left lower extremity swelling. , and hematocrit and platelet count. Stable renal parameters and electrolytes. Urine toxicology screen was negative. Serum alcohol level was less than 3. urinalysis revealed no evidence of urinary tract infection. CT of the head revealed no acute intracranial pathology. Per ED doctor, based on the exam and history provided by [employer] and paramedics along with the family and observation of the behavior , patient presented with danger to himself and others. Patient subsequently admitted for further management. CONSULTANTS: ID specialist Dr. Cervantes GI specialist Dr. Rowland psychiatrist Dr. Conner [facility] COURSE: Patient admitted to medical surgical floor. Venous duplex bilateral lower extremity revealed no evidence of acute DVT. Chest x-ray revealed no acute cardiopulmonary pathology. Psychiatrist seen and evaluated patient. Per psychiatrist patient had dementia with behavioral disturbances. Patient started on Seroquel. Ativan was on board as needed. Reality orientation and supportive therapy provided. Infectious disease specialist followed. No evidence of infection . Infectious disease specialist recommended to observe patient off antibiotics. Patient had episodes of vomiting. Abdominal x-ray revealed no acute findings. GI specialist followed . Patient initially was kept n.p.o. on IV fluids. GI prophylaxis with PPI provided. Antiemetic provided as needed. Nausea was controlled . Patient slowly started on diet as tolerated , no further vomiting. Diabetic diet was further advance as tolerated. Patient was able to tolerate diet. Blood sugar was stable. Patient required SNF placement. Placement was found and secured. Ppatient was stable for transfer FINAL DIAGNOSES: Dementia with behavioral disturbances Encephalopathy Diabetes mellitus Left leg edema Vomiting resolved DISCHARGE MEDICATIONS: See Medication Reconciliation list. DISCHARGE INSTRUCTIONS: [facility] Follow up with medical doctor at the facility. I have been assigned to dictate discharge summary for this account. I was not involved in the patient's management. Yaritza Ward NP Aug 16, 2019 20:35
== END 2019-08-14 15:19 | DRG 71 ==
LOC: EMR 13:29 → 4E 14:58 → EDBEDREQ 17:08
DX: G93.40 Encephalopathy, unspecified (principal); R11.2 Nausea with vomiting, unspecified; F05 Delirium due to known physiological condition; E78.5 Hyperlipidemia, unspecified; E11.9 Type 2 diabetes mellitus without complications; F03.91 Unspecified dementia, unspecified severity, with behavioral disturbance; R60.0 Localized edema; F41.9 Anxiety disorder, unspecified
CPT/HCPCS: 36415; 70450; 71045; 74018; 80053; 80307; 81001; 82140; 84443; 85025; 93005; 93970; 96372; 96374; 96375; 96376; 99285; G0480